=== PATIENT | male | born 1975 | race Caucasian/White ===

== ENCOUNTER → 2024-07-31 11:14 | Outpatient (REF) | payer OTHER, SELFPAY | LOC: UCDH 11:14 | PROVIDERS: ATTENDING PHYSICIAN Emergency Medicine | DX: S69.92XA Unspecified injury of left wrist, hand and finger(s), initial encounter (principal) | CPT/HCPCS: 73110 ==

== ENCOUNTER → 2024-09-25 09:17 | Outpatient (REF) | payer BC, SELFPAY ==
[2024-09-25 10:27] LABS: ALT (SGPT) 60 U/L (0-50); AST (SGOT) 32 U/L (17-59); Albumin 4.6 g/dl (3.5-5.0); Alkaline Phosphatase 87 U/L (38-126); Blood Urea Nitrogen 29 mg/dl (9-20); Calcium 9.4 mg/dl (8.4-10.2); Carbon Dioxide 24 mmol/L (22-30); Chloride 107 mmol/L (98-107); Glucose 114 mg/dl (70-99); HDL Cholesterol 41 mg/dl; LDL Cholesterol, Calculated 130 mg/dl; Potassium 4.4 mmol/L (3.5-5.1); Sodium 142 mmol/L (135-145); Total Cholesterol 201 mg/dl (50-199); Triglyceride 150 mg/dl (10-149); Very Low Density Lipoprotein 30 mg/dl (0-30); eGFR > 60.00
== END ==
LOC: REG 09:17
PROVIDERS: ATTENDING PHYSICIAN Nurse Practitioner Adult Health
DX: E78.00 Pure hypercholesterolemia, unspecified (principal)
CPT/HCPCS: 36415; 80053; 80061

== ENCOUNTER → 2024-10-16 09:14 | Outpatient (REF) | payer BC, SELFPAY ==
[2024-10-16 11:11] LABS: ALT (SGPT) 59 U/L (0-50); AST (SGOT) 34 U/L (17-59); Albumin 4.8 g/dl (3.5-5.0); Alkaline Phosphatase 92 U/L (38-126); Blood Urea Nitrogen 18 mg/dl (9-20); Calcium 9.6 mg/dl (8.4-10.2); Carbon Dioxide 25 mmol/L (22-30); Chloride 104 mmol/L (98-107); Glucose 108 mg/dl (70-99); Potassium 4.7 mmol/L (3.5-5.1); Sodium 140 mmol/L (135-145); Total Bilirubin 1.2 mg/dl (0.2-1.3); eGFR > 60.00
== END ==
LOC: REG 09:14
PROVIDERS: ATTENDING PHYSICIAN Nurse Practitioner Adult Health
DX: R79.89 Other specified abnormal findings of blood chemistry (principal)
CPT/HCPCS: 36415; 80053

== ENCOUNTER → 2025-01-29 09:34 | Outpatient (REF) | payer BC, SELFPAY ==
[2025-01-29 11:21] LABS: ALT (SGPT) 46 U/L (0-50); AST (SGOT) 24 U/L (17-59); Albumin 4.6 g/dl (3.5-5.0); Alkaline Phosphatase 80 U/L (38-126); Direct Bilirubin 0.1 mg/dl (0.0-0.4); Total Bilirubin 0.9 mg/dl (0.2-1.3)
== END ==
LOC: REG 09:34
PROVIDERS: ATTENDING PHYSICIAN Internal Medicine Gastroenterology; FAMILY PHYSICIAN Internal Medicine
DX: R74.01 Elevation of levels of liver transaminase levels (principal)
CPT/HCPCS: 36415; 80076

== ENCOUNTER → 2025-02-21 14:54 | Outpatient (REF) | payer BC, SELFPAY | LOC: DHSLP 14:54 | PROVIDERS: ATTENDING PHYSICIAN Otolaryngology | DX: G47.33 Obstructive sleep apnea (adult) (pediatric) (principal) | CPT/HCPCS: 95806 ==

== ENCOUNTER 2025-04-16 06:19 | Day surgery (SDC) | payer BC, SELFPAY | END 2025-04-16 16:39 | disposition home or self-care (01) | LOC: GI 06:19 | PROVIDERS: ATTENDING PHYSICIAN Internal Medicine Gastroenterology | DX: Z12.11 Encounter for screening for malignant neoplasm of colon (principal); K64.8 Other hemorrhoids; R12 Heartburn; K22.89 Other specified disease of esophagus; D12.3 Benign neoplasm of transverse colon; D12.2 Benign neoplasm of ascending colon; D12.7 Benign neoplasm of rectosigmoid junction | CPT/HCPCS: 45385; 45381; 43239; 88305; 88342 ==